=== PATIENT | female | born 1995 | race African-American/Black ===

== ENCOUNTER 2024-04-06 19:04 | Emergency (ER) | payer OTHER ==
[2024-04-06 19:49] VITALS: BP 132/87; PULSE 71; RESP 18; TEMP 98.6; BMI 28.3
[2024-04-06] MEDS ORDERED: KETOROLAC TROMETHAMINE 30 MG/1 ML VIAL ONE (20:15)
[2024-04-06] MEDS ORDERED: METHOCARBAMOL 500 MG TABLET ONE (20:15)
[2024-04-06] MEDS ORDERED: LIDOCAINE 4% PATCH TP ONE (20:15)
[2024-04-06] MEDS: METHOCARBAMOL 500 MG TABLET PO ONE (20:18)
[2024-04-06] MEDS: LIDOCAINE 4% PATCH TP ONE (20:18)
[2024-04-06] MEDS: KETOROLAC TROMETHAMINE 30 MG/1 ML VIAL IM ONE (20:19)
[2024-04-06] MEDS ORDERED: LIDOCAINE PATCH REMOVAL MC SCH (22:00)
== END 2024-04-06 21:54 | disposition left against medical advice (07) ==
LOC: JERFT 19:04
PROC: 3E0133Z Introduction of Anti-inflammatory into Subcutaneous Tissue, Percutaneous Approach (ICD-10-PCS; principal; 2024-04-06)
DX: M54.2 Cervicalgia (principal); M25.522 Pain in left elbow; V49.50XA Passenger injured in collision with unspecified motor vehicles in traffic accident, initial encounter
CPT/HCPCS: 73070-TC-LT-FY; 84703; 99284-25